=== PATIENT | female | born 1990 | race African-American/Black ===

== ENCOUNTER 2018-07-23 18:03 | Emergency (ER) | payer SELFPAY ==
[~2018-07-23] VITALS: Ht 167.6 cm; Wt 68.0 kg
[~2018-07-23 18:03] MED LIST: ALBU2.5V8 INH; FLUT1DIS3 IH; HYDR-2761 PO; METR500T PO; ONDA4TAB10 SL
[2018-07-23] MEDS ORDERED: KETOROLAC 15 MG/ML VIAL. IV ONE (18:15)
[2018-07-23] MEDS ORDERED: IV NORMAL SALINE 1000ML BAG 1,000 ML IV SCH (18:15)
[2018-07-23] MEDS ORDERED: PROCHLORPERAZINE 10 MG/2 ML VIAL. IV ONE (18:15)
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
[2018-07-23 18:33] LABS: BASO % 0 % (0-3); EOS % 0 % (0-3); HEMATOCRIT 41.2 % (36.0-47.0); HEMOGLOBIN 13.4 g/dL (12.0-15.5); LYMPH # 0.5 x10^3/uL (1.0-4.8); LYMPH % 3 % (24-48); MEAN CORPUSCULAR HEMOGLOBIN 27 pg (25-35); MEAN CORPUSCULAR HGB CONC 32 g/dL (31-37); MEAN CORPUSCULAR VOLUME 84 fL (79-100); MONO # 0.3 x10^3/uL (0.0-1.1); MONO % 2 % (0-9); NEUT # 14.5 x10^3uL (1.8-7.7); NEUT % 95 % (31-73); PLATELET COUNT 220 x10^3/uL (140-400); RED BLOOD COUNT 4.89 x10^6/uL (3.50-5.40); RED CELL DISTRIBUTION WIDTH 14.4 % (11.5-14.5); WHITE BLOOD COUNT 15.3 x10^3/uL (4.0-11.0)
[2018-07-23 18:40] LABS: PROTHROMBIN TIME PATIENT 13.5 SEC (11.7-14.0)
[2018-07-23 18:44] LABS: CALCIUM 9.7 mg/dL (8.5-10.1); GFR 78.8; POTASSIUM 3.2 mmol/L (3.5-5.1)
[2018-07-23 18:47] LABS: D-DIMER 0.52 ug/mlFEU (0.00-0.50)
[2018-07-23 18:49] LABS: ALBUMIN 3.9 g/dL (3.4-5.0); ALBUMIN/GLOBULIN RATIO 1.1 (1.0-1.7); MAGNESIUM 1.6 mg/dL (1.8-2.4); TOTAL BILIRUBIN 0.6 mg/dL (0.2-1.0); TOTAL PROTEIN 7.6 g/dL (6.4-8.2)
[2018-07-23 19:02] LABS: INFLUENZA A PATIENT NEGATIVE (NEGATIVE); INFLUENZA B PATIENT NEGATIVE (NEGATIVE)
[2018-07-23 19:19] LABS: % BANDS 6 % (0-9); % LYMPHS 4 % (24-48); % SEGS 90 % (35-66); PLT ESTIMATE ADEQUATE (ADEQUATE)
[2018-07-23 19:53] LABS: BILIRUBIN,URINE NEGATIVE (NEG); CLARITY,URINE CLEAR; COLOR,URINE YELLOW; NITRITE,URINE NEGATIVE (NEG); PH,URINE 8.5; PROTEIN,URINE 30 mg/dL (NEG-TRACE); UROBILINOGEN,URINE 0.2 mg/dL (0.2 mg/dL)
[2018-07-23 19:58] LABS: AMPHETAMINE/METHAMPHETAMINE NEG (NEG); BARBITURATES NEG (NEG); BENZODIAZEPINES NEG (NEG); CANNABINOIDS POS (NEG); COCAINE NEG (NEG); METHADONE NEG (NEG); OPIATES NEG (NEG); PHENCYCLIDINE NEG (NEG)
[2018-07-23 20:01] LABS: BACTERIA,URINE 0 /HPF (0-FEW); RBC,URINE 20-40 /HPF (0-2); SQUAMOUS EPITHELIAL CELL,UR FEW /LPF; TRICHOMONAS,URINE PRESENT
[2018-07-23 20:07] VITALS: BP 92/55
[2018-07-23] MEDS ORDERED: METO10TA81 PO (20:36)
[2018-07-23] MEDS ORDERED: METR500T PO (20:36)
[2018-07-23] MEDS ORDERED: SULF1TAB24 PO (20:36)
[2018-07-23] MEDS ORDERED: FLUC150T PO (20:36)
--- NOTE | 2018-07-23 23:46 | RAD ---
AP portable chest radiograph 07/23/2018 Clinical History: Chest pain. An AP erect portable digital radiograph of the chest was obtained. Comparison study is dated 06/03/2016. The cardiac and mediastinal silhouettes are within normal limits in size and configuration. No acute pulmonary infiltrate is seen. No pleural effusion or pneumothorax is noted. Impression: No acute abnormality is seen. Electronically signed by: Nguyễn Celestin MD (07/23/2018 11:42 PM) [facility]
--- NOTE | 2018-07-29 11:26 | EKG ---
[facility] [address] [place] [address] Test Date: 2018-07-23 Test Time: 18:06:06 Pat Name: DENISE ORNELAS Department: Room: Gender: F Promotional Representative: : 1990 Requested By: ABILIO LEWIS Order Number: [id number] Reading MD: Measurements Intervals Madeline Rate: P: NC: QRS: QRSD: T: QT: QTc: Interpretive Statements
== END 2018-07-23 20:49 | disposition home or self-care (01) ==
LOC: ER 18:03
DX: N39.0 Urinary tract infection, site not specified (principal); A59.09 Other urogenital trichomoniasis; R07.89 Other chest pain; R11.2 Nausea with vomiting, unspecified; R19.7 Diarrhea, unspecified; J45.909 Unspecified asthma, uncomplicated; F17.210 Nicotine dependence, cigarettes, uncomplicated
CPT/HCPCS: 36415; 71045; 80053; 80307; 81001; 83690; 83735; 83880; 84484; 85007; 85025; 85379; 85610; 87086; 87804; 96361; 96374; 96375; 99284; J0780; J1885; J7030; 93005

== ENCOUNTER 2019-02-04 01:49 | Emergency (ER) | payer SELFPAY ==
[~2019-02-04] VITALS: Ht 165.1 cm; Wt 62.6 kg
[~2019-02-04 01:49] MED LIST changes: +FLUC150T PO; +METO10TA81 PO; +SULF1TAB24 PO
[2019-02-04 01:58] VITALS: BP 147/89
[2019-02-04] MEDS ORDERED: ALBU2.5V8 INH (02:21)
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
[2019-02-04] MEDS ORDERED: methylPREDNISolone SOD SUCC PF 125 MG/2 ML VIAL. IV ONE (02:30)
== END 2019-02-04 02:50 | disposition home or self-care (01) ==
LOC: ER 01:49
DX: J45.21 Mild intermittent asthma with (acute) exacerbation (principal)
CPT/HCPCS: 96374; 99284; J2930

== ENCOUNTER 2020-04-19 10:05 | Emergency (ER) | payer SELFPAY ==
[~2020-04-19] VITALS: Ht 165.1 cm; Wt 64.0 kg
[2020-04-19] MEDS ORDERED: IV NORMAL SALINE 1000ML BAG 1,000 ML IV ONE (10:30)
[2020-04-19 10:37] VITALS: BP 152/72
[2020-04-19] MEDS ORDERED: MORPHINE SULFATE 4 MG/ML VIAL. IV ONE (11:00)
[2020-04-19] MEDS ORDERED: ONDANSETRON PF 4 MG/2 ML VIAL. IVP ONE (11:00)
[2020-04-19 11:09] LABS: BASO % 0 % (0-3); EOS % 0 % (0-3); HEMOGLOBIN 11.9 g/dL (12.0-15.5); LYMPH # 0.5 x10^3/uL (1.0-4.8); LYMPH % 5 % (24-48); MEAN CORPUSCULAR HEMOGLOBIN 26 pg (25-35); MEAN CORPUSCULAR HGB CONC 33 g/dL (31-37); MEAN CORPUSCULAR VOLUME 78 fL (79-100); MONO # 0.2 x10^3/uL (0.0-1.1); MONO % 2 % (0-9); NEUT # 9.1 x10^3/uL (1.8-7.7); NEUT % 93 % (31-73); PLATELET COUNT 290 x10^3/uL (140-400); RED BLOOD COUNT 4.65 x10^6/uL (3.50-5.40); RED CELL DISTRIBUTION WIDTH 19.3 % (11.5-14.5); WHITE BLOOD COUNT 9.8 x10^3/uL (4.0-11.0)
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
--- NOTE | 2020-04-19 11:27 | RAD ---
Examination: Ultrasound abdomen limited HISTORY: History of right upper quadrant abdominal pain COMPARISON: None available. FINDINGS: The pancreas, visualized aorta, IVC within normal limits of dimension. The echogenicity of liver grossly appears unremarkable. No evidence of gallstones. The right kidney measures 9.6 cm in length. IMPRESSION: Unremarkable visualized exam. Electronically signed by: Eulalio Her MD (04/19/2020 11:24 AM) [id number]
--- NOTE | 2020-04-19 11:34 | RAD ---
EXAM: PORTABLE CHEST 1V INDICATION: Reason: SOA / Spl. Instructions: / History: . TECHNIQUE: Single view COMPARISON: 07/23/2018 chest x-ray FINDINGS: The heart size is normal. The great vessels appear unremarkable. There is no hilar or mediastinal mass. The lungs are clear. There is no pleural effusion or pneumothorax. There are no significant osseous abnormalities. IMPRESSION: No active cardiopulmonary disease. Electronically signed by: Karol Woods MD (04/19/2020 11:31 AM) [id number]
[2020-04-19 11:59] LABS: CALCIUM 9.2 mg/dL (8.5-10.1); CREATININE 0.9 mg/dL (0.6-1.0); GFR 87.8; POTASSIUM 3.7 mmol/L (3.5-5.1)
[2020-04-19 12:01] LABS: CLARITY,URINE BLOODY; COLOR,URINE RED
[2020-04-19 12:03] LABS: BACTERIA,URINE 0 /HPF (0-FEW); RBC,URINE TNTC /HPF (0-2)
[2020-04-19 12:04] LABS: ALBUMIN 4.2 g/dL (3.4-5.0); ALBUMIN/GLOBULIN RATIO 1.2 (1.0-1.7); MAGNESIUM 1.7 mg/dL (1.8-2.4); TOTAL BILIRUBIN 0.3 mg/dL (0.2-1.0); TOTAL PROTEIN 7.7 g/dL (6.4-8.2)
[2020-04-19] MEDS ORDERED: ONDA4TAB12 PO (14:32)
[2020-04-19 14:35] LABS: % BANDS 1 % (0-9); % LYMPHS 6 % (24-48); % MONOS 3 % (0-10); % SEGS 90 % (35-66); PLT ESTIMATE ADEQUATE (ADEQUATE)
[2020-04-19 14:36] LABS: ANISOCYTOSIS SLIGHT; HYPOCHROMIA SLIGHT
== END 2020-04-19 14:58 | disposition home or self-care (01) ==
LOC: ER 10:05
DX: R10.11 Right upper quadrant pain (principal); Z20.828 Contact with and (suspected) exposure to other viral communicable diseases; R06.02 Shortness of breath; R10.13 Epigastric pain; R05 Cough; J45.909 Unspecified asthma, uncomplicated; F17.200 Nicotine dependence, unspecified, uncomplicated; Z98.890 Other specified postprocedural states
CPT/HCPCS: 36415; 71045; 76705; 80053; 81001; 83690; 83735; 84484; 84702; 85007; 85025; 87086; 93005; 96361; 96374; 96375; 99285; C9803; J2270; J2405; J7030; U0003

== ENCOUNTER 2020-04-20 16:05 | Emergency (ER) | payer SELFPAY ==
[~2020-04-20] VITALS: Ht 162.6 cm; Wt 65.0 kg
[~2020-04-20 16:05] MED LIST changes: +ONDA4TAB12 PO
[2020-04-20] MEDS ORDERED: IV NORMAL SALINE 1000ML BAG 1,000 ML IV ONE (16:30)
[2020-04-20] MEDS ORDERED: FAMOTIDINE 20 MG/2 ML VIAL IVP ONE (16:45)
[2020-04-20] MEDS ORDERED: MORPHINE SULFATE 10 MG/ML VIAL. IV ONE ×2 (16:45→18:30)
[2020-04-20] MEDS ORDERED: LIDO:MAALOX 1:1 20 ML SINGLE DOSE. SWSW ONE (16:45)
[2020-04-20] MEDS ORDERED: ONDANSETRON PF 4 MG/2 ML VIAL. IVP ONE (16:45)
[2020-04-20 17:05] LABS: BASO # 0.1 x10^3/uL (0.0-0.2); BASO % 1 % (0-3); EOS % 0 % (0-3); HEMATOCRIT 38.1 % (36.0-47.0); HEMOGLOBIN 12.5 g/dL (12.0-15.5); LYMPH # 0.8 x10^3/uL (1.0-4.8); LYMPH % 11 % (24-48); MEAN CORPUSCULAR HEMOGLOBIN 25 pg (25-35); MEAN CORPUSCULAR HGB CONC 33 g/dL (31-37); MEAN CORPUSCULAR VOLUME 78 fL (79-100); MONO # 0.4 x10^3/uL (0.0-1.1); MONO % 5 % (0-9); NEUT # 5.6 x10^3/uL (1.8-7.7); NEUT % 82 % (31-73); PLATELET COUNT 316 x10^3/uL (140-400); RED BLOOD COUNT 4.91 x10^6/uL (3.50-5.40); RED CELL DISTRIBUTION WIDTH 19.5 % (11.5-14.5); WHITE BLOOD COUNT 6.8 x10^3/uL (4.0-11.0)
[2020-04-20 17:21] LABS: CALCIUM 9.2 mg/dL (8.5-10.1); CREATININE 0.9 mg/dL (0.6-1.0); GFR 87.8; POTASSIUM 3.1 mmol/L (3.5-5.1)
[2020-04-20 17:26] LABS: ALBUMIN 4.2 g/dL (3.4-5.0); MAGNESIUM 1.9 mg/dL (1.8-2.4); TOTAL BILIRUBIN 0.4 mg/dL (0.2-1.0); TOTAL PROTEIN 8.4 g/dL (6.4-8.2)
[2020-04-20] MEDS ORDERED: POTASSIUM CHLORIDE 20 MEQ TABLET.ER. PO ONE (18:15)
[2020-04-20 18:30] LABS: BILIRUBIN,URINE NEGATIVE (NEG); CLARITY,URINE CLEAR; COLOR,URINE YELLOW; NITRITE,URINE NEGATIVE (NEG); PH,URINE 8.5 (<5.0-8.0); PROTEIN,URINE NEGATIVE (NEG-TRACE); UROBILINOGEN,URINE 0.2 mg/dL (0.2 mg/dL)
[2020-04-20 18:33] LABS: BARBITURATES NEG (NEG); BENZODIAZEPINES NEG (NEG); CANNABINOIDS POS (NEG); COCAINE POS (NEG); METHADONE NEG (NEG); OPIATES POS (NEG); PHENCYCLIDINE NEG (NEG)
[2020-04-20 18:35] LABS: AMPHETAMINE/METHAMPHETAMINE NEG (NEG)
[2020-04-20 18:41] LABS: BACTERIA,URINE FEW /HPF (0-FEW); RBC,URINE >40 /HPF (0-2)
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
[2020-04-20 18:45] VITALS: BP 128/76
--- NOTE | 2020-04-21 09:05 | NUR ---
IP: Attempted to call COVID results. No answer. Left a voicemail to return the call.
--- NOTE | 2020-04-21 11:11 | NUR ---
IP: Informed pt of negative COVID test. Pt verbalized understanding.
--- NOTE | 2020-04-23 13:59 | EKG ---
[facility] [address] [place] [address] Test Date: 2020-04-20 Test Time: 16:55:07 Pat Name: DENISE ORNELAS Department: Room: Gender: F Junior Programmer Analyst: : 1990 Requested By: HERNANDO ZIEGLER Order Number: [id number] Reading MD: Measurements Intervals [address] Rate: 68 P: 56 NM: 154 QRS: 68 QRSD: 84 T: 55 QT: 402 QTc: 428 Interpretive Statements SINUS RHYTHM NORMAL ECG RI6.02 No previous ECG available for comparison
== END 2020-04-20 19:40 | disposition home or self-care (01) ==
LOC: ER 16:05
DX: R10.13 Epigastric pain (principal); R07.89 Other chest pain; R10.11 Right upper quadrant pain; J45.909 Unspecified asthma, uncomplicated; F17.200 Nicotine dependence, unspecified, uncomplicated
CPT/HCPCS: 36415; 80053; 80307; 81001; 83690; 83735; 83880; 84443; 84484; 85025; 87086; 93005; 96361; 96374; 96375; 96376; 99285; J2270; J2405; J3490; J7030